=== PATIENT | female | born 1990 | race Asian ===

== ENCOUNTER 2018-07-15 00:37 | Inpatient (IN) ==
--- OUTSIDE RECORDS SUMMARY | 2018-07-15 00:41 | External Medical Summary | Continuity of Care Document ---
:1990 Author Name Sergio Brown, Provider Address Unavailable Unavailable , Care Team Providers Name Role Phone Antelmo Brown, [email or web address] Mario Brown, [email or web address]. 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) Encounter for supervision of normal preg ken in multigravida in third trimester (V22.1) (Z34.83) Post-term (645.10) (O48.0) Allergies and Adverse Reactions No Known Drug Allergies (Allergy) Medications Ondansetron 4 MG Oral Tablet Disintegrat ing; TAKE 1 TABLET Every 6 hours PRN nausea Stephanie Martin Start: 05-Dec-2017 Quantity: 20 Refills: 3 Vitamins TABS Refills: 0 Zantac TABS Refills: 0 Tums CHEW Refills: 0 Procedures Non-stress test Date: 13-Jul-2018 History of Corneal LASIK Status: Complet ed Immunizations PPD On: 30-Aug-2013 16:06 Lot #: [id number], [employer] Influenza (Whole) On: 10-Jan-2015 12:36 Lot #: [id number], [employer] Tdap (Adacel) On: 23-May-2015 15:32 Lot #: [id number], [employer] Fluzone Quadrivalent 0.5 ML Intramuscular Suspension P refilled Syringe On: 05-Dec-2017 8:58 Lot #: [id number], [employer] Tdap (Adacel) On: 21-Apr-2018 9:02 Lot #: [id number], [employer] Family History Father Family history of Prostate Cancer (V16.42) Status: Active Family history of prostate cancer (V16.42) (Z80.42) Status: Active Plan of Treatment Planned Encounters Appointment; Risa Rodriges M.D. Start: 20-Jul-2018 9:00 Re quest Planned Observations Planned Goals not documented Results Group B Strep/WELCH 22-Jun-2018 0:00 GRP B BETA STREP CULTURE - WELCH ORDERED P ROCEDURE : GRP B Beta Strep Culture -WELCH; Speciment : V aginal/Rectal Source of Specimen: Vaginal/ Rectal Group B St rep Culture : Group B Beta Strep GROUP B BETA STREP\S\Group B Beta Strep Posit eliane for Group B Beta Strep S\S\Sens No Sensitivities to Follow Vital Signs 13-Jul-2018 9:06 Systolic 118 mm[Hg] Diastolic 72 mm[Hg] Height 61.5 in Weight 171.6 lb BSA Calculated 1.78 m2 BMI Calculated 31.9 kg/m2 06-Jul-2018 9:04 Systolic 124 mm[Hg] Diastolic 88 mm[Hg] Height 61.5 in Weight 169.4 lb BSA Calculated 1.77 m2 BMI Calculated 31.49 kg/m2 29-Jun-2018 9:42 Systolic 100 mm[Hg] Diastolic 60 mm[Hg] Height 61.5 in Weight 163 lb BSA Calculated 1.74 m2 BMI Calculated 30.3 kg/m2 22-Jun-2018 9:01 Systolic 114 mm[Hg] Diastolic 72 mm[Hg] Height 61.5 in Weight 167.0 lb BSA Calculated 1.76 m2 BMI Calculated 31.04 kg/m2 15-Jun-2018 16:20 Systolic 114 mm[Hg] Diastolic 68 mm[Hg] Height 61.5 in Weight 166.0 lb BSA Calculated 1.76 m2 BMI Calculated 30.86 kg/m2 Encounters Appointment; Shavon Rodríguez M.D. 13-Jul-2018 9:00 Encounter Diagnosis: Problem not documented Appointment; Jet Colmenares M.D. 06-Jul-2018 9:00 Encounter Diagnosis: Problem not documented Appointment; Mc Martin M.D. 29-Jun-2018 9:40 Encounter Diagnosis: Problem not documented Appointment; Jet Colmenares M.D. 22-Jun-2018 9:00 Encounter Diagnosis: Problem not documented Appointment; Jet Colmenares M.D. 15-Jun-2018 16:20 Encounter Diagnosis: Problem not documented Appointment; Risa Rodriges M.D. 01-Jun-2018 15:40 Encounter Diagnosis: Problem not documented Appointment; Anuradha Brower M.D. 18-May-2018 15:40 Encounter Diagnosis: Problem not documented Appointment; Marybeth Conrad, 04-May-2018 15:40 Encounter Diagnosis: Problem not documented Appointment; Risa Rodriges M.D. 21-Apr-2018 8:40 Encounter Diagnosis: Problem not documented Appointment; Jet Colmenares M.D. 24-Mar-2018 15:00 Encounter Diagnosis: Problem not documented Appointment; Marybeth Conrad, 04-Mar-2018 14:20 Encounter Diagnosis: Problem not documented Appointment; OBGYN SC1, Ultrasound 04-Mar-2018 13:30 Encounter Diagnosis: Problem not documented Appointment; Mc Martin M.D. 30-Jan-2018 8:30 Encounter Diagnosis: Problem not documented Appointment; Anuradha Brower M.D. 02-Jan-2018 9:20 Encounter Diagnosis: Problem not documented Appointment; OB SC1, Procedure Rm 05-Dec-2017 8:20 Encounter Diagnosis: Problem not documented Appointment; Mc Martin M.D. 05-Dec-2017 8:20 Encounter Diagnosis: Problem not documented Appointment; OB SC1, Nursing Station 28-Nov-2017 8:45 Encounter Diagnosis: Problem not documented Appointment; Risa Rodriges M.D. 20-Jul-2018 9:00 Encounter Diagnosis: Problem not documented
[2018-07-15] MEDS ORDERED: OXYTOCIN 30 UNITS/500 ML BAG IV PRN ×2 (01:25→03:30)
[2018-07-15] MEDS ORDERED: LACTATED RINGER'S 1,000 ML IV PRN ×2 (01:25→02:59)
[2018-07-15] MEDS ORDERED: PENICILLIN G POTASSIUM 3 MU in DEXTROSE 5% 100 ML IV PRN (01:28)
[2018-07-15] MEDS ORDERED: PENICILLIN G POTASSIUM 6 MU in DEXTROSE 5% 250 ML IV STA (01:28)
[2018-07-15] MEDS ORDERED: LACTATED RINGER'S 1,000 ML IV SCH (01:30)
[2018-07-15] MEDS ORDERED: BUPIVACAINE 0.25% 30 ML VIAL ONE (01:48)
[2018-07-15] MEDS ORDERED: ePHEDrine sulfate 50 MG/ML AMP ONE (01:49)
[2018-07-15] MEDS ORDERED: fentaNYL citrate 100 MCG/2 ML VIAL ONE (01:49)
[2018-07-15] MEDS ORDERED: fentaNYL 2MCG/ML ROPIV 1.25MG/ML 100 ML BAG EPI ONE (01:50)
[2018-07-15 01:51] LABS: Hemoglobin 13.2 g/dL (12.0-16.0); Mean Corpuscular Volume 90.9 fL (80-100); Mean Platelet Volume 11.1 fL (7.4-10.4); Platelet Count 135 K/uL (130-400); RDW Coefficient of Variation 13.7 % (11.5-14.5); RDW Standard Deviation 45.4 fL (36.4-46.3); Red Blood Count 4.18 M/uL (4.2-5.4); White Blood Count 8.89 K/uL (4.8-10.8)
[2018-07-15 01:56] LABS: Mean Corpuscular Hgb Conc 34.7 g/dL (32-36)
--- NOTE | 2018-07-15 02:09 | History & Physical Report ---
Date of Service July 15, 2018 Assessment & Plan (1) Normal labor and delivery: Reactive NST Active labor GBS+ > PCN History of Present Illness Primary Care Provider: NO PCP 28yo at 40.0 weeks GA. Present in active labor. complicated by GBS +. Denying LOF, VB. Good FM Allergies Allergy/AdvReac Type Severity Reaction Status Date / Time No Known Allergies Allergy Verified 07/15/18 02:04 Home Medications Home Medications Medication Instructions Recorded Confirmed Type Vitamin 1 tab PO DAILY 07/15/18 07/15/18 History Patient History Surgical History Hx of LASIK Social History Preferred Language: [place]an Communication Ability: Effective Rabbit Fancier Required: No Beliefs That Will Affect Care: None marital status: Current Living Situation: Family Other Information That Helps Us Care for You: No Feels Safe at Home: Yes Safety Concerns: Feels Safe At This Time Smoking Status: Never smoker Hx Alcohol Use: No Hx Substance Use: No Physical Exam Genitourinary: Manual OB Exam: + cervical dilation 5 cm, + cervical effacement 80% and + station -1; no amniotic fluid OB Exam Monitor Tracing: + category I and + normal FHT variability Results & Data Vital Signs (Past 12 Hours) Vital Signs Temp Pulse Resp BP Pulse Ox 07/15/18 02:03 99 H 97 07/15/18 01:16 83 140/70 07/15/18 01:06 81 125/73 07/15/18 00:54 97.5 F L 96 H 20 149/88 H
[2018-07-15 02:14] LABS: Creatinine Clr Calc Pharmacy 137.3 ml/min; Est GFR (African American) 145.2; Est GFR (Non-African American) 125.3
--- NOTE | 2018-07-15 02:54 | Anesthesiology Consultation ---
Date of Service July 15, 2018 Assessment & Plan (1) Encounter for pre-operative examination: Chart Review Chart Review: Acceptable Risk for Surgery and Patient NOT seen in Pre Admission Testing Consults Requested none History Height/Weight Height: 5 ft 1 in Weight: 77.564 kg Allergies Allergy/AdvReac Type Severity Reaction Status Date / Time No Known Allergies Allergy Verified 07/15/18 02:04 Medications Home Medications Medication Instructions Recorded Confirmed Last Taken vit-iron fum-folic ac 1 tab PO DAILY 07/15/18 07/15/18 07/14/18 08:00 [ Vitamin] Active Medications Generic Name Dose Route Start Last Admin Trade Name Freq PRN Reason Stop Dose Admin Lactated Ringer's 1,000 mls @ 999 mls/hr 07/15/18 01:25 07/15/18 01:38 Lr IV 08/14/18 01:24 999 mls/hr .Q1H1M PRN Administration Pre-Anesthesia Lactated Ringer's 1,000 mls @ 125 mls/hr 07/15/18 01:30 07/15/18 02:52 Lr IV 07/17/18 01:29 125 mls/hr .Q8H JOELLE Administration Past Surgical History Surgical History Hx of LASIK Social History Smoking Status: Never smoker Hx Alcohol Use: No Hx Substance Use: No substance use type: does not use Physical Exam Vital Signs Last Vital Signs Temp 36.5 C 07/15/18 02:40 Pulse 86 07/15/18 02:52 Resp 20 07/15/18 02:40 BP 123/57 L 07/15/18 02:52 Pulse Ox 100 07/15/18 02:48 Testing Laboratory Results 07/15/18 01:41 07/15/18 01:41
[2018-07-15] MEDS ORDERED: NALBUPHINE HCL INJ 10 MG/ML AMP IV PRN (02:59)
[2018-07-15] MEDS ORDERED: fentaNYL 2MCG/ML ROPIV 1.25MG/ML 100 ML BAG EPI PRN (02:59)
[2018-07-15] MEDS ORDERED: NALOXONE HCL 1 MG in SODIUM CHLORIDE 0.9% 1000ML 1,000 ML IV PRN (02:59)
[2018-07-15] MEDS ORDERED: NALOXONE HCL 0.4 MG/1 ML VIAL/CARP IV PRN (02:59)
[2018-07-15] MEDS ORDERED: ePHEDrine sulfate 50 MG/ML AMP IV PRN (02:59)
[2018-07-15] MEDS ORDERED: DiphenhydrAMINE HCL 50 MG/ML VIAL IV PRN (02:59)
[2018-07-15] MEDS ORDERED: ONDANSETRON INJ 2 MG/ML 2 ML VIAL IV PRN (02:59)
[2018-07-15] MEDS ORDERED: BISACODYL 10 MG SUPP PR PRN (03:30)
[2018-07-15] MEDS ORDERED: BENZOCAINE 20% AER SPR 82.5 GM CAN EXT PRN (03:30)
[2018-07-15] MEDS ORDERED: DIPHTHERIA/TETANUS/PERTUSSIS 0.5 ML SYR/VIAL IM ONE (03:30)
[2018-07-15] MEDS ORDERED: SUPERCREAM 0.870% 15 GM JAR EXT PRN (03:30)
[2018-07-15] MEDS ORDERED: HYDROCORTISONE ACETATE 25 MG SUPP PR PRN (03:30)
[2018-07-15] MEDS ORDERED: ACETAMINOPHEN 325 MG TAB PO PRN (03:30)
--- NOTE | 2018-07-15 08:40 | Delivery Summary ---
DATE OF OPERATION: 07/15/2018 PROCEDURE: Normal spontaneous vaginal delivery. SURGEON: Jet Colmenares MD PREOPERATIVE DIAGNOSES: 1. Single intrauterine at term. 2. GBS positive. 3. Labor. POSTOPERATIVE DIAGNOSES: 1. Single intrauterine at term. 2. GBS positive. 3. Labor. 4. Delivered. ESTIMATED BLOOD LOSS: 100 mL. DRAINS: None. FLUIDS: Continuous lactated ringer. URINE OUTPUT: Not measured. COMPLICATIONS: None. FINDINGS: Viable with weight pending, Apgars of 8 and 9 at 1 and 5 minutes respectively. INDICATIONS: Ms. Calvin is a 28-year-old G2, P1-0-0-1, who presented in active labor. At first exam, the patient was 5-6 cm dilated. She was then admitted and given epidural for anesthesia. She continued to progress in labor quickly, over approximately 2-hour period to become complete-complete, +1 and with the urge to push. DESCRIPTION OF PROCEDURE: The patient progressed to 10 cm dilated, 100% effaced, +1 station, and pushed over intact perineum with epidural anesthesia and delivered a viable with weight pending and Apgars of 8 and 9 at 1 and 5 minutes respectively. Head of the came out in JONATHAN position and rest into right transverse. Nuchal cord x1 was noted. The body and shoulders quickly followed. was noted to be vigorous upon delivery. The patient pushed over 1 contraction to achieve delivery. A 1-minute delayed cord clamping was initiated for which the cord was double clamped and cut. Cord blood was then obtained. Attention was then turned to delivery of the placenta which was delivered intact with 3-vessel cord, gentle cord traction. Inspection of the perineum, vagina and cervix noted no lacerations. Decision was made to end the case. Both mother and were stable in the immediate post-delivery. I attest to the content of the Intraoperative Record and any orders documented therein. Any exception s are noted below.
[2018-07-15] MEDS: PRENATAL VITAMIN 1 TAB PO SCH (09:06)
[2018-07-15] MEDS: DOCUSATE SODIUM 100 MG CAP PO SCH ×2 (09:06→20:33)
--- NOTE | 2018-07-15 10:01 | Anesthesia Procedure Note ---
Date of Service July 15, 2018 Anesthesia Post Epidural Note Vital Signs Vital Signs: Temp Pulse Resp BP Pulse Ox 37.3 C 85 20 107/70 97 07/15/18 08:19 07/15/18 08:19 07/15/18 08:19 07/15/18 08:19 07/15/18 03:28 Pain Intensity Bilateral Lower Abdomen: Pain Intensity: 0 Notes Mental Status: alert / awake / arousable Nausea / Vomiting: adequately controlled Pain: adequately controlled Airway Patency, RR, SpO2: stable & adequate BP & HR: stable & adequate Hydration State: stable & adequate Neuraxial Anesthesia: was administered and sensory block is resolving Anesthetic Complications: no major complications apparent and Pt Satisfied with anesthetic care Epidural: Removed without complications and With tip intact
[2018-07-15] MEDS: IBUPROFEN 600 MG TAB PO PRN (15:32)
[2018-07-16] MEDS: IBUPROFEN 600 MG TAB PO PRN ×4 (00:08→18:38)
--- NOTE | 2018-07-16 07:41 | Obstetrical Progress Note ---
Date of Service <Malou Woods MD - Last Filed: 07/16/18 07:46> July 16, 2018 Assessment & Plan <Malou Woods MD - Last Filed: 07/16/18 07:46> (1) care following vaginal delivery: 28yo with at 40wks. GBS+ PPD #1 -Routine care -ambulation encouraged -pain control -discharge possible today (pending baby's discharge status) Subjective <Malou Woods MD - Last Filed: 07/16/18 07:46> Ambulation: ambulating normally Voiding: no voiding problems Passing Gas:: Yes Diet Tolerance:: regular diet Lochia:: Moderate Feeding Type:: breast feeding Current Pain Level(1-10): 0 Eyes: no problem reported (no blurry vision) Respiratory: no dyspnea Cardiovascular: no chest pain, no palpitations, no lightheadedness and no calf pain Gastrointestinal: no nausea and no vomiting Genitourinary (female): + dysuria (mild) Neurologic: no headache(s) Physical Exam <Malou Woods MD - Last Filed: 07/16/18 07:46> Vital Signs (Past 24 Hours) Last Vital Signs Temp 36.6 C 07/16/18 00:00 Pulse 80 07/16/18 00:00 Resp 20 07/16/18 00:00 BP 110/69 07/16/18 00:00 Pulse Ox 97 07/15/18 15:10 Respiratory normal respiratory effort, lungs clear to auscultation Cardiovascular Rate/Rhythm: regular rate and regular rhythm Extremities: no calf tenderness Genitourinary OB Exam Abdomen: + fundal height Fundus: + firm and + relation to umbilicus (at umbilicus) Results & Data <Malou Woods MD - Last Filed: 07/16/18 07:46> Medications Administered Home Medications vit-iron fum-folic ac [ Vitamin] 1 tab PO DAILY 07/15/18 [History Confirmed 07/15/18] Active Medications Acetaminophen (Tylenol) 650 mg PO Q6H PRN PRN Reason: Pain/NICHOLSON/Fever Stop: 08/14/18 03:29 Benzocaine (Dermoplast Pain Relieving [place]) 1 appln EXT PRN PRN PRN Reason: Perineal Discomfort Stop: 08/14/18 03:29 Bisacodyl (Dulcolax) 5 mg PO 2000 [facility] Stop: 07/16/18 20:01 Bisacodyl (Dulcolax) 10 mg [place] DAILY PRN PRN Reason: No BM on 2nd post- day Stop: 08/14/18 03:29 Cocaine HCl (Supercream 0.870%) 1 gm EXT BID PRN PRN Reason: Hemorrhoidal Inflammation Stop: 07/29/18 03:29 Docusate Sodium (Colace) 100 mg PO BID [facility] Stop: 08/14/18 08:59 Last Admin: 07/15/18 20:33 Dose: 100 mg Documented by: Hydrocortisone (Anusol Hc) 25 mg [place] BID PRN PRN Reason: Hemorrhoidal Inflammation Stop: 08/14/18 03:29 Oxytocin (Pitocin) 30 units in 500 mls @ 333.333 mls/hr IV .Q1H30M PRN; Protocol PRN Reason: Bleeding Control Ibuprofen (Motrin) 600 mg PO Q4H PRN PRN Reason: Pain/NICHOLSON/Cramping/Fever Stop: 08/14/18 03:29 Last Admin: 07/16/18 06:28 Dose: 600 mg Documented by: Prenat Multivit/Waste Examiner/Iron/Folic Ac ( Vitamin) 1 tab PO QAM [facility] Stop: 08/14/18 08:59 Last Admin: 07/15/18 09:06 Dose: 1 tab Documented by: <Susy Cueto MD, FACOG - Last Filed: 07/16/18 07:58> Co-Signing Physician Notes Resident Physician Supervision Note: I interviewed and examined the patient. Discussed with Dr. Woods and agree with findings and plan as documented in the note. Any exceptions or clarifications are listed here: Doing well. Would like to be d/c today, but GBS positive so will see about peds opinion. routine care. Documented By: Susy Cueto MD, FACOG
[2018-07-16 08:19] LABS: Hematocrit (blood only) 38.2 % (37-47); Mean Platelet Volume 11.1 fL (7.4-10.4); Platelet Count 123 K/uL (130-400); RDW Coefficient of Variation 14.1 % (11.5-14.5); Red Blood Count 4.15 M/uL (4.2-5.4); White Blood Count 7.64 K/uL (4.8-10.8)
[2018-07-16] MEDS: DOCUSATE SODIUM 100 MG CAP PO SCH ×2 (09:44→20:37)
[2018-07-16] MEDS: PRENATAL VITAMIN 1 TAB PO SCH (09:44)
[2018-07-16] MEDS ORDERED: BISACODYL 5 MG TABEC PO SCH (20:00)
[2018-07-17] MEDS: IBUPROFEN 600 MG TAB PO PRN (04:26)
[2018-07-17 06:05] LABS: Hematocrit (blood only) 39.2 % (37-47); Hemoglobin 13.3 g/dL (12.0-16.0)
--- NOTE | 2018-07-17 07:30 | Obstetrical Progress Note ---
Date of Service <Malou Woods MD - Last Filed: 07/17/18 07:34> July 17, 2018 Assessment & Plan <Malou Woods MD - Last Filed: 07/17/18 07:34> (1) care following vaginal delivery: 28yo with at 40wks. GBS+ PPD #2 -Pt doing well. -Discharge today -Discharge instructions reviewed Subjective <Malou Woods MD - Last Filed: 07/17/18 07:34> Ambulation: ambulating normally Voiding: no voiding problems Passing Gas:: Yes Diet Tolerance:: regular diet Lochia:: Moderate Feeding Type:: breast feeding Current Pain Level(1-10): 0 Respiratory: no dyspnea Cardiovascular: no chest pain, no palpitations, no lightheadedness and no calf pain Gastrointestinal: no nausea and no vomiting Genitourinary (female): no dysuria Neurologic: no headache(s) Physical Exam <Malou Woods MD - Last Filed: 07/17/18 07:34> Vital Signs (Past 24 Hours) Last Vital Signs Temp 36.6 C 07/17/18 00:00 Pulse 74 07/17/18 00:00 Resp 16 07/17/18 00:00 BP 109/68 07/17/18 00:00 Pulse Ox 96 07/17/18 00:00 Respiratory normal respiratory effort, lungs clear to auscultation Cardiovascular Rate/Rhythm: regular rate and regular rhythm Extremities: + calf tenderness Genitourinary OB Exam Abdomen: + fundal height Fundus: + firm and + relation to umbilicus (at umbilicus) Results & Data <Malou Woods MD - Last Filed: 07/17/18 07:34> Laboratory Results Laboratory Results - last 24 hr 07/16/18 07/17/18 07:26 05:53 WBC 7.64 RBC 4.15 L Hgb 13.0 13.3 Hct 38.2 39.2 MCV 92.0 MCH 31.3 MCHC 34.0 RDW Std Deviation 47.0 H RDW Coeff of Dionna 14.1 Plt Count 123 L MPV 11.1 H Medications Administered Home Medications vit-iron fum-folic ac [ Vitamin] 1 tab PO DAILY 07/15/18 [History Confirmed 07/15/18] Active Medications Acetaminophen (Tylenol) 650 mg PO Q6H PRN PRN Reason: Pain/NICHOLSON/Fever Stop: 08/14/18 03:29 Benzocaine (Dermoplast Pain Relieving [place]) 1 appln EXT PRN PRN PRN Reason: Perineal Discomfort Stop: 08/14/18 03:29 Bisacodyl (Dulcolax) 10 mg [place] DAILY PRN PRN Reason: No BM on 2nd post- day Stop: 08/14/18 03:29 Cocaine HCl (Supercream 0.870%) 1 gm EXT BID PRN PRN Reason: Hemorrhoidal Inflammation Stop: 07/29/18 03:29 Docusate Sodium (Colace) 100 mg PO BID [facility] Stop: 08/14/18 08:59 Last Admin: 07/16/18 20:37 Dose: 100 mg Documented by: Hydrocortisone (Anusol Hc) 25 mg [place] BID PRN PRN Reason: Hemorrhoidal Inflammation Stop: 08/14/18 03:29 Oxytocin (Pitocin) 30 units in 500 mls @ 333.333 mls/hr IV .Q1H30M PRN; Protocol PRN Reason: Bleeding Control Ibuprofen (Motrin) 600 mg PO Q4H PRN PRN Reason: Pain/NICHOLSON/Cramping/Fever Stop: 08/14/18 03:29 Last Admin: 07/17/18 04:26 Dose: 600 mg Documented by: Prenat Multivit/[place]/Iron/Folic Ac ( Vitamin) 1 tab PO QAM [facility] Stop: 08/14/18 08:59 Last Admin: 07/16/18 09:44 Dose: 1 tab Documented by: <Anuradha Brower MD, FACOG - Last Filed: 07/17/18 07:55> Co-Signing Physician Notes Resident Physician Supervision Note: I interviewed and examined the patient. Discussed with Dr. Malou Woods and agree with findings and plan as documented in the note. Any exceptions or clarifications are listed here: [None] Documented By: Anuradha Brower MD, FACOG
[2018-07-17] MEDS: DOCUSATE SODIUM 100 MG CAP PO SCH (08:41)
[2018-07-17] MEDS: PRENATAL VITAMIN 1 TAB PO SCH (08:42)
== END 2018-07-17 12:37 | disposition home or self-care (01) | DRG 807 ==
LOC: OPB 00:37 → 4S1 00:39 → 4S2 06:55